=== PATIENT | male | born 1990 | race African-American/Black ===

== ENCOUNTER 2018-06-03 17:05 | Emergency (ER) | payer BC, OTHER ==
[~2018-06-03] VITALS: Ht 190.5 cm; Wt 95.3 kg
[2018-06-03 17:31] VITALS: BP 142/75
[2018-06-03] MEDS ORDERED: ACETAMINOPHEN 500 MG TAB PO ONE (20:00)
[2018-06-03] MEDS ORDERED: IBUPROFEN 800 MG TAB PO ONE (20:00)
== END 2018-06-03 19:50 | disposition home or self-care (01) ==
LOC: ER 17:10
DX: S63.501A Unspecified sprain of right wrist, initial encounter (principal); M62.838 Other muscle spasm; V43.52XA Car driver injured in collision with other type car in traffic accident, initial encounter; Y93.89 Activity, other specified; Y99.8 Other external cause status; Y92.410 Unspecified street and highway as the place of occurrence of the external cause
CPT/HCPCS: 72040; 73110